=== PATIENT | male | born 1995 | race Caucasian/White ===

== ENCOUNTER 2016-10-28 01:34 | Emergency (ER) | payer OTHER ==
[2016-10-28 01:46] VITALS: BP 132/85
[2016-10-28] MEDS ORDERED: Diphtheria,Pertussis(Acell),Tetanus Vaccine 0.5 ML SDV inactive IM ONE (02:58)
--- NOTE | 2016-10-28 03:22 | EDM.PDOC ---
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 He presents with an approximately 1.5 cm linear laceration to the ulnar aspect of his left fifth finger. He is otherwise uninjured. He does not recall when his last tetanus vaccination was. - Related Data Allergies Allergy/AdvReac Type Severity Reaction Status Date / Time No Known Allergies Allergy Verified 10/28/16 01:45 Home Meds: Ambulatory Orders Medication Instructions Recorded Confirmed . [No Known Home Meds] 10/28/16 10/28/16 Past Medical History - Past Surgical History Musculoskeletal Surgical History: Reports: Other (see below) (Right thumb surgery) Social & Family History - Tobacco Use Smoking Status *Q: Current Every Day Smoker Years of Tobacco use: 10 Packs/Tins Daily: 0.2 Used Tobacco, but Quit: No Second Hand Smoke Exposure: No - Caffeine Use Caffeine Use: Reports: None - Alcohol Use Alcohol Use History: Yes Alcohol Use Frequency: Socially - Recreational Drug Use Recreational Drug Use: No - Living Situation & Occupation Living situation: Reports: single, with family Occupation: employed ([employer]) ED ROS GENERAL - Review of Systems Review Of Systems: See Below Constitutional: Reports: no symptoms HEENT: Reports: No symptoms Respiratory: Reports: No Symptoms Cardiovascular: Reports: No symptoms Endocrine: Reports: no symptoms GI/Abdominal: Reports: No symptoms : Reports: no symptoms Musculoskeletal: Reports: no symptoms Skin: Reports: no symptoms Neurological: Reports: No Symptoms Psychiatric: Reports: No symptoms Hematologic/Lymphatic: Reports: no symptoms Immunologic: Reports: no symptoms ED EXAM, SKIN/RASH Exam: See Below Exam Limited By: No limitations General Appearance: alert, WD/WN, no apparent distress Extremities: other (There is an approximately 1.5 cm linear laceration to the ulnar aspect of the left fifth finger, on the middle phalanges. Minimal bleeding. No tendinous or ligamentous injury detected. Neurovascular status of the finger is intact.) ED SKIN PROCEDURES - Laceration/Wound Repair Left Finger Lac/wound length in cm: 1.5 Appearance: subcutaneous, linear, clean Distal NVT: neuro & vascular intact, no tendon injury Skin prep: saline Exploration/Debridement/Repair: wound explored, in a bloodless field, explored to base, no foreign material found, wound margins revised Closed with: dermabond Sterile dressing applied: nurse Tetanus status addressed: Yes Complications: No Course - Vital Signs Last Recorded V/S: Last Vital Signs Temp 37.0 C 10/28/16 01:42 Pulse 68 10/28/16 01:42 Resp 18 10/28/16 01:42 BP 132/85 10/28/16 01:42 Pulse Ox 99 10/28/16 01:42 - Orders/Labs/Meds Orders: Active Orders 24 hr Category Date Time Status Vaccines to be Administered [RC] PER UNIT ROUTINE Care 10/28/16 02:58 Active Meds: Medications Discontinued Medications Generic Name Dose Route Start Last Admin Trade Name Freq PRN Reason Stop Dose Admin Diphtheria/Tetanus/Acell Pertussis 0.5 ml 10/28/16 02:58 Boostrix IM 10/28/16 02:59 .ONCE ONE - Re-Assessments/Exams Free Text/Narrative Re-Assessment/Exam: 10/28/16 03:19 The laceration was closed with Dermabond, and a wide Band-Aid applied on the finger, to help keep it straight. Departure - Departure Time of Disposition: 03:19 Disposition: Home, Self-Care 01 Condition: good Clinical Impression: Laceration of left little finger Forms: ED Department Discharge Additional Instructions: You were seen in the emergency room tonight after cutting your left pinky finger. The wound was closed with Dermabond. A wide a Band-Aid was applied to help keep your finger straight. You received a tetanus vaccination. Keep the wound clean if it gets dirty, but do not scrub or pick at the Dermabond glue. Allow it to flake off on its own over the next few days. If any problems, please do not hesitate to return to the ER. - My Orders Last 24 Hours: My Active Orders 10/28/16 02:58 Vaccines to be Administered [RC] PER UNIT ROUTINE - Assessment/Plan Last 24 Hours: My Active Orders 10/28/16 02:58 Vaccines to be Administered [RC] PER UNIT ROUTINE
== END 2016-10-28 03:28 | disposition home or self-care (01) ==
LOC: JD.ED 01:34
DX: S61.217A Laceration without foreign body of left little finger without damage to nail, initial encounter (principal); Z23 Encounter for immunization; W45.8XXA Other foreign body or object entering through skin, initial encounter; Y92.69 Other specified industrial and construction area as the place of occurrence of the external cause; Y99.0 Civilian activity done for income or pay; F17.210 Nicotine dependence, cigarettes, uncomplicated
CPT/HCPCS: 12001; 90471; 90715; 99282-25; 99283-25

== ENCOUNTER 2018-09-14 07:42 | Emergency (ER) | payer OTHER ==
[2018-09-14 07:57] VITALS: BP 147/83
[2018-09-14] MEDS ORDERED: Midazolam 1 MG/ML 5 ML SDV IVPUSH ONE (08:08)
[2018-09-14] MEDS ORDERED: fentaNYL 100 MCG/2 ML SDV IVPUSH ONE (08:08)
[2018-09-14] MEDS ORDERED: Bupivacaine 0.5% 10 ML SDV INJECT ONE (08:09)
--- NOTE | 2018-09-14 08:11 | EDM.PDOC ---
ED HPI GENERAL MEDICAL PROBLEM - General Chief Complaint: Laceration Stated Complaint: CUT ON LIP Time Seen by Provider: 09/14/18 08:05 Source of Information: Reports: Patient History Limitations: Reports: No Limitations - History of Present Illness INITIAL COMMENTS - FREE TEXT/NARRATIVE: 23-year-old male presents to the ED with a work-related injury. States he was using a grinding wheel this morning above his face level. Grinding wheel caught on something and slipped back striking him in the face with a grinding wheel with resultant deep laceration to his right upper lip through and through almost to the columella. Feels his upper teeth are perhaps a little bit loose. Denies any other injuries. Reports his tetanus toxoid is up-to-date. Injury occurred in the workplace about a half an hour ago. States he was wearing a face shield and a cut through the fascial shield well Onset: Today Onset Date: 09/14/18 Onset Time: 07:35 Duration: Minutes: Location: Reports: Face (Deep laceration to the right upper lip through and through.) Quality: Reports: Ache Severity: Moderate Improves with: Reports: None Worsens with: Reports: None Context: Reports: Trauma (Grinding wheel struck him in the face.). 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) (None.) Face/Facial Pain Score (Numeric/FACES): 5 - Related Data Allergies Allergy/AdvReac Type Severity Reaction Status Date / Time No Known Allergies Allergy Verified 09/14/18 07:57 Home Meds: Home Meds oxyCODONE HCl/Acetaminophen [Percocet 5-325 mg Tablet] 1 - 2 each PO Q4H PRN # 10 tablet 09/14/18 [Rx] Past Medical History - Past Health History Medical/Surgical History: Denies Medical/Surgical History - Past Surgical History Musculoskeletal Surgical History: Reports: Other (See Below) Social & Family History - Tobacco Use Smoking Status *Q: Current Every Day Smoker Years of Tobacco use: 4 Packs/Tins Daily: 0.5 - Caffeine Use Caffeine Use: Reports: Coffee - Recreational Drug Use Recreational Drug Use: No - Living Situation & Occupation Living situation: Reports: Single, with Family Occupation: Employed ED ROS GENERAL - Review of Systems Review Of Systems: See Below Constitutional: Denies: Fever, Chills, Malaise, Weakness, Fatigue HEENT: Reports: No Symptoms Respiratory: Reports: No Symptoms Cardiovascular: Reports: No Symptoms Endocrine: Reports: No Symptoms GI/Abdominal: Reports: No Symptoms : Reports: No Symptoms Musculoskeletal: Reports: No Symptoms Skin: Reports: No Symptoms Neurological: Reports: No Symptoms Psychiatric: Reports: No Symptoms Hematologic/Lymphatic: Reports: No Symptoms Immunologic: Reports: No Symptoms ED EXAM, SKIN/RASH Exam: See Below Exam Limited By: No Limitations General Appearance: Alert, WD/WN, Mild Distress, Other (As an obvious deep cut through and through to his right upper lip.) Eye Exam: Bilateral Eye: Normal Inspection Ears: Normal External Exam Nose: Normal Inspection Throat/Mouth: Normal Inspection, Normal Lips, Normal Teeth, Normal Oropharynx, Other (No obvious injuries to his upper teeth but the gingiva margin is abraded and slightly lacerated at the superior aspect the laceration lacerations proximally 3 cm in length) Head: Atraumatic, Normocephalic Neck: Normal Inspection, Supple, Non-Tender, Full Range of Motion. No: Lymphadenopathy (L), Lymphadenopathy (R) Respiratory/Chest: No Respiratory Distress, Lungs Clear, Normal Breath Sounds, No Accessory Muscle Use, Chest Non-Tender Cardiovascular: Normal Peripheral Pulses, Regular Rate, Rhythm, No Edema, No Gallop, No Murmur, No Rub, Other (He is mildly hypertensive at this time) Peripheral Pulses: 3+: Posterior Tibial (L), Posterior Tibial (R), Dorsalis Pedis (L), Dorsalis Pedis (R) GI/Abdominal: Normal Bowel Sounds, Soft, Non-Tender, No Organomegaly ED SKIN PROCEDURES - Laceration/Wound Repair Right Lower Face Lac/Wound length In cm: 6.0 Appearance: Subcutaneous Distal NVT: Neuro & Vascular Intact Anesthetic Type: Other (Conscious sedation with the use of fentanyl 50 g and Versed 2 mg) Local Anesthesia - Bupivicaine (Marcaine): 0.5% Plain Local Anesthetic Volume: Other (10 mL) Skin Prep: Saline Exploration/Debridement/Repair: Wound Explored, Minimal Debridement Closed with: Sutures Suture Size: 4-0 (4-0 nylon sutures in the skin from the columella to the [place] border.) # of Sutures: 6 Suture Type: Nylon, Interrupted, Simple Suture Size: 4-0 # of Sutures: 10 (Vicryl was used to lyse to close the [place] border and the inner aspect of the lip to the gingiva margin.) Repaired with: Vicryl Course - Vital Signs Last Recorded V/S: Last Vital Signs Temp 36.7 C 09/14/18 07:54 Pulse 79 09/14/18 07:54 Resp 16 09/14/18 07:54 BP 147/83 H 09/14/18 07:54 Pulse Ox 97 09/14/18 07:54 - Orders/Labs/Meds Orders: Active Orders 24 hr Category Date Time Status Sodium Chloride 0.9% [Normal Saline] 1,000 ml Med 09/14/18 08:15 Active IV ASDIRECTED Medication Orders Sodium Chloride (Normal Saline) 1,000 mls @ 150 mls/hr IV ASDIRECTED ANNE Last Admin: 09/14/18 08:25 Dose: 150 mls/hr Meds: Medications Generic Name Dose Route Start Last Admin Trade Name Freq PRN Reason Stop Dose Admin Sodium Chloride 1,000 mls @ 150 mls/hr 09/14/18 08:15 09/14/18 08:25 Normal Saline IV 150 mls/hr ASDIRECTED ANNE Administration Discontinued Medications Generic Name Dose Route Start Last Admin Trade Name Freq PRN Reason Stop Dose Admin Bupivacaine HCl 20 ml 09/14/18 08:09 09/14/18 08:25 Sensorcaine-Mpf 0.5% INJECT 09/14/18 08:10 20 ml ONETIME ONE Administration Fentanyl 100 mcg 09/14/18 08:08 09/14/18 08:25 Sublimaze IVPUSH 09/14/18 08:09 100 mcg ONETIME ONE Administration Midazolam HCl 5 mg 09/14/18 08:08 09/14/18 08:26 Versed 1 Mg/Ml IVPUSH 09/14/18 08:09 Not Given ONETIME ONE Midazolam HCl Confirm 09/14/18 08:18 09/14/18 08:26 Versed 5 Mg/Ml Administered 09/14/18 08:19 25 mg Dose Administration 25 mg .ROUTE .[facility] - Radiology Interpretation Free Text/Narrative:: 23-year-old male presents to the ED with a work-related injury. He was at work this morning and a grinder machine setter that he was using at above face level kicked back and struck him in the right upper lip. He cut through his face shield. He has a 3 cm laceration through and through of the right upper lip and slight abrasion to the gingiva margin superiorly. The laceration travels nearly to the columella. He will require fairly extensive surgical repair. It is slightly contaminated with grinding wheel material. Last tetanus toxoid he believes is up -to-date. He is very apprehensive about having needlestick in the wound. Therefore will perform the laceration repair which will be fairly extensive under conscious sedation using fentanyl and Versed. The wound will be anesthetized with bupivacaine. - Re-Assessments/Exams Free Text/Narrative Re-Assessment/Exam: 09/14/18 09:14 extensive complicated laceration of his right upper lip was performed under conscious sedation. He required 2 mg of Ativan and 50 g of fentanyl to provide good sedation. The wound was then anesthetized using 0.5% bupivacaine. It was sutured in 2 layers both outer and inner using 4-0 Ethilon to close the skin from the columella to the [place] border. The Halie border of the lip and the internal aspect of the lip were sutured with 4-0 Vicryl sutures. Inner aspect of the wound was 3 cm outer aspect of the wound was 3 cm in length. Labeled as a complicated repair. Minimal debridement carried out so need to be removed in 8 days time. The Vicryl sutures can remain in place until they fall on her own. I will discharge him on a few tablets of Percocet 12/10/24 for the initial pain response when asked 2 days and after that he can use Motrin 600 mg every 6 hours. Departure - Departure Time of Disposition: 10:02 Disposition: Home, Self-Care 01 Condition: Fair Clinical Impression: Laceration of lip, complicated Qualifiers: Encounter type: initial encounter Qualified Code(s): S01.511A - Laceration without foreign body of lip, initial encounter - Discharge Information *PRESCRIPTION DRUG MONITORING PROGRAM REVIEWED*: Not Applicable *COPY OF PRESCRIPTION DRUG MONITORING REPORT IN PATIENT NATTY: Not Applicable Prescriptions: oxyCODONE HCl/Acetaminophen [Percocet 5-325 mg Tablet] 1 - 2 each PO Q4H PRN # 10 tablet PRN Reason: pain relief. Referrals: PCP,None [Primary Care Provider] - Forms: ED Department Discharge, ED Return to Work/School Form Additional Instructions: Evaluation the emergency room today in regards to injuries sustained in the workplace this morning. A grinding wheel that you're utilizing kicked back and struck him in the right upper lip with a resultant through and through laceration of the right upper lip through the vermilion border and up to the base of your nose: The columella. There is slight abrasion to the gingiva margin but no obvious severe dental injury occurred. He received medications to help facilitate the procedure which we call conscious sedation using Versed and fentanyl. Wound was then anesthetized under local anesthetic in multiple layers. Sutures on the outer aspect of the lip will have to be removed in about 8 days time. May use Percocet tabs one or 2 every 4-6 hours needed for pain relief today and tomorrow if needed. After this only Motrin 600 mg every 6 hours needed for relief of pain and inflammation. Of course off work the remainder today due to medications received in the ED. Tentatively may return to work tomorrow. - My Orders Last 24 Hours: My Active Orders 09/14/18 08:15 Sodium Chloride 0.9% [Normal Saline] 1,000 ml IV ASDIRECTED - Assessment/Plan Last 24 Hours: My Active Orders 09/14/18 08:15 Sodium Chloride 0.9% [Normal Saline] 1,000 ml IV ASDIRECTED
[2018-09-14] MEDS ORDERED: Sodium Chloride 0.9% 1,000 ML IV SCH (08:15)
[2018-09-14] MEDS ORDERED: Midazolam 5 MG/ML 5 ML MDV ONE (08:18)
== END 2018-09-14 10:36 | disposition home or self-care (01) ==
LOC: JD.ED 07:42
DX: S01.511A Laceration without foreign body of lip, initial encounter (principal); F17.210 Nicotine dependence, cigarettes, uncomplicated; W31.89XA Contact with other specified machinery, initial encounter
CPT/HCPCS: 40650; 96361; 96374; 96375; 99283; J2250; J3010; J3490; J7040; 12014; 13132; 99284